=== PATIENT | female | born 1990 | race Caucasian/White ===

== ENCOUNTER 2017-07-20 19:55 | Emergency (ER) | payer OTHER ==
[~2017-07-20] VITALS: Ht 180.3 cm; Wt 85.2 kg
[2017-07-20 20:02] VITALS: BP 114/59
[2017-07-20] MEDS ORDERED: dexamethasone sod phosphate 10mg/ml inj IM STA (20:17)
[2017-07-20] MEDS ORDERED: meclizine 12.5mg tablet PO ONE (20:20)
[2017-07-20] MEDS ORDERED: ondansetron 4mg rapidly disintigrating tab PO ONE (20:20)
[2017-07-20] MEDS ORDERED: ONDA4TAB9 PO (20:57)
[2017-07-20] MEDS ORDERED: MECL-111 PO (20:57)
== END 2017-07-20 21:04 | disposition home or self-care (01) ==
LOC: ER 19:56
DX: R42 Dizziness and giddiness (principal); Z88.2 Allergy status to sulfonamides
CPT/HCPCS: 96372; 99283; J1100; J8597